=== PATIENT | male | born 1940 | race African-American/Black ===

== ENCOUNTER 2018-08-17 11:47 | Inpatient (IN) | payer MEDICARE, MEDICAID ==
[~2018-08-17] VITALS: Ht 175.3 cm; Wt 54.0 kg
[2018-08-17] MEDS: IPRATROPIUM BROMIDE (0.02%) 0.5MG/2.5ML NEB HHN SCH ×2 (01:20→20:50)
[2018-08-17] MEDS: ALBUTEROL (0.083%) 2.5MG/3ML NEB HHN SCH (05:10)
[2018-08-17] MEDS ORDERED: PREDNISONE 20MG TABLET PO STA (12:14)
[2018-08-17] MEDS ORDERED: IPRATROPIUM BROMIDE (0.02%) 0.5MG/2.5ML NEB HHN STA (12:14)
[2018-08-17] MEDS ORDERED: SODIUM CHLORIDE 0.9% 1000ML BAG (SEPSIS BOLUS) IV ONE (12:15)
[2018-08-17] MEDS ORDERED: DOXYCYCLINE HYCLATE 100MG CAPSULE PO ONE (12:15)
[2018-08-17 12:37] LABS: BG CARBOXYHEMOGLOBIN 1.3 % (0.5-1.5); BG DEOXYHEMOGLOBIN 1.5 % (0.0-5.0); BG FRACTION INSPIRED OXYGEN 36; BG HCO3 ACT 27.6 mmol/L (22.0-26.0); BG OXYGEN SATURATION 98.5 % (92.0-98.5); BG OXYHEMOGLOBIN 97.2 % (94.0-97.0); BG PCO2 42.7 mmHg (35.0-45.0); BG PH 7.428 (7.350-7.450); BG PO2 136.8 mmHg (75.0-100.0); BG SAMPLE SITE RIGHT RADIAL; BG TOTAL HEMOGLOBIN 5.9 g/dL (12.0-18.0); BG VENT MODE NASAL CANNULA
[2018-08-17 12:39] LABS: MEAN CORPUSCULAR HEMOGLOBIN 38.4 pg (28.0-32.0); MEAN CORPUSCULAR VOLUME 119.6 fL (80.0-94.0); MEAN PLATELET VOLUME 10.2 fl (7.4-10.4); PLATELET 66 x1000/uL (130-400); RED BLOOD CELL COUNT 1.33 mill/uL (4.7-6.1); RED CELL DISTRIBUTION WIDTH 18.9 % (11.6-14.6)
[2018-08-17 12:44] LABS: HEMOGLOBIN. 5.1 g/dL (14.0-18.0)
[2018-08-17 12:46] LABS: CHLORIDE 111 mEq/L (98-107)
[2018-08-17 12:50] LABS: ETHANOL BLOOD < 10 mg/dL
[2018-08-17 12:53] LABS: INR 1.1; PROTHROMBIN TIME 11.5 sec (9.6-11.0)
[2018-08-17 12:58] LABS: PLATELET ESTIMATE DECREASED
[2018-08-17] MEDS ORDERED: ONDANSETRON HCL 4MG/2ML INJ IV PRN (14:30)
[2018-08-17] MEDS ORDERED: METHYLPREDNISOLONE SOD SUCC 40 MG/ML VIAL IV NR (14:45)
[2018-08-17 14:58] LABS: TOTAL IRON BINDING CAPACITY 248 ug/dL (250-450)
[2018-08-17 16:50] LABS: FOLIC ACID (FOLATE) SERUM 13.7 ng/mL (>5.38)
[2018-08-17] MEDS ORDERED: ACETAMINOPHEN 325MG TABLET PO PRN (17:30)
[2018-08-17 17:56] LABS: HEPATITIS B SURFACE ANTIGEN NEGATIVE
[2018-08-17 18:26] LABS: HEPATITIS A AB IGM NEGATIVE (NEGATIVE)
[2018-08-17 20:00] VITALS: BP 108/88
[2018-08-17 20:01] VITALS: BP 108/88
[2018-08-17] MEDS ORDERED: SODIUM CHLORIDE 10% FOR INH 15ML VIAL NEB INH SCH (21:30)
[2018-08-17] MEDS ORDERED: CEFEPIME 500 MG in DEXTROSE 5% WATER 50 ML IV SCH (22:00)
[2018-08-17 23:50] VITALS: BP 130/56
[2018-08-18] VITALS (15 sets, daily range): BP systolic 106–158; BP diastolic 56–80
[2018-08-18] MEDS ORDERED: PIPERACILLIN/TAZ 2.25G PREMIX 50 ML IV SCH (01:00)
[2018-08-18 03:13] LABS: HEMATOCRIT 21.9 % (42.0-52.0)
[2018-08-18 03:20] LABS: HEMOGLOBIN 6.7 g/dL (14.0-18.0)
[2018-08-18] MEDS: SODIUM CHLORIDE 0.45% 1,000 ML IV SCH ×3 (04:09→17:10)
[2018-08-18] MEDS: METHYLPREDNISOLONE SOD SUCC 40 MG/ML VIAL IV SCH ×4 (04:09→21:37)
[2018-08-18] MEDS: IPRATROPIUM BROMIDE (0.02%) 0.5MG/2.5ML NEB HHN SCH ×5 (05:10→21:12)
[2018-08-18] MEDS ORDERED: PIPERACILLIN/TAZOBACTAM 2.25 G in DEXTROSE 5% WATER 50 ML IV SCH (06:00)
[2018-08-18 06:08] LABS: HEMATOCRIT. 21.5 % (42.0-52.0); MEAN CORPUSCULAR HEMOGLOBIN 32.5 pg (28.0-32.0); MEAN CORPUSCULAR VOLUME 104.4 fL (80.0-94.0); MEAN PLATELET VOLUME 9.4 fl (7.4-10.4); RED BLOOD CELL COUNT 2.06 mill/uL (4.7-6.1); RED CELL DISTRIBUTION WIDTH 25.1 % (11.6-14.6)
[2018-08-18 06:21] LABS: CHLORIDE 116 mEq/L (98-107)
[2018-08-18 06:26] LABS: CLARITY URINE CLEAR (CLEAR); COLOR URINE YELLOW (YELLOW); KETONES URINE NEGATIVE (NEGATIVE); LEUKOCYTE ESTERASE URINE 1+ (NEGATIVE); NITRITE URINE NEGATIVE (NEGATIVE); OCCULT BLOOD URINE NEGATIVE (NEGATIVE); PH URINE 5.5 (4.5-8.0); PROTEIN URINE NEGATIVE (NEGATIVE); SPECIFIC GRAVITY URINE 1.019 (1.005-1.030); UROBILINOGEN URINE 0.2 E.U./dL (0.2-1.0)
[2018-08-18 07:31] LABS: *AMPHETAMINES SCREEN URINE NEGATIVE (NEGATIVE); *BARBITURATES SCREEN URINE NEGATIVE (NEGATIVE); *BENZODIAZEPINES SCREEN URINE NEGATIVE (NEGATIVE); *COCAINE SCREEN URINE PRESUMTIVE POSITIVE (NEGATIVE); CANNABINOID URINE SCREEN NEGATIVE (NEGATIVE); METHADONE URINE SCREEN NEGATIVE (NEGATIVE); OPIATES URINE SCREEN NEGATIVE (NEGATIVE); PHENCYCLIDINE URINE SCREEN NEGATIVE (NEGATIVE)
[2018-08-18 08:49] LABS: HEMOGLOBIN. 6.7 g/dL (14.0-18.0); PLATELET 41 x1000/uL (130-400)
[2018-08-18 10:34] LABS: HEMATOCRIT 26.5 % (42.0-52.0); HEMOGLOBIN 8.4 g/dL (14.0-18.0)
[2018-08-18] MEDS: PANTOPRAZOLE SODIUM 40 MG/VIAL IV SCH (10:43)
[2018-08-18 11:23] LABS: PLATELET ESTIMATE MARKEDLY DECREASED
[2018-08-18] MEDS ORDERED: CEFEPIME 500 MG in DEXTROSE 5% WATER 50 ML IV SCH (12:30)
[2018-08-18] MEDS: METRONIDAZOLE 500 MG PREMIX 100 ML IV SCH ×2 (12:49→21:37)
[2018-08-18] MEDS ORDERED: METRONIDAZOLE 500 MG PREMIX 100 ML IV SCH (18:00)
[2018-08-19] VITALS: BP 132/63
[2018-08-19] MEDS: IPRATROPIUM BROMIDE (0.02%) 0.5MG/2.5ML NEB HHN SCH ×6 (00:46→21:15)
[2018-08-19 04:00] VITALS: BP 130/68
[2018-08-19] MEDS: METHYLPREDNISOLONE SOD SUCC 40 MG/ML VIAL IV SCH ×3 (06:18→22:04)
[2018-08-19] MEDS: METRONIDAZOLE 500 MG PREMIX 100 ML IV SCH ×3 (06:20→22:04)
[2018-08-19] MEDS: SODIUM CHLORIDE 0.45% 1,000 ML IV SCH ×2 (06:30→16:00)
[2018-08-19 06:55] LABS: CHLORIDE 114 mEq/L (98-107)
[2018-08-19 07:11] LABS: HAPTOGLOBIN 107 mg/dL (30-200)
[2018-08-19 08:00] VITALS: BP 133/55
[2018-08-19 08:34] LABS: HEMATOCRIT. 27.4 % (42.0-52.0); HEMOGLOBIN. 8.1 g/dL (14.0-18.0); MEAN CORPUSCULAR HEMOGLOBIN 30.5 pg (28.0-32.0); MEAN CORPUSCULAR VOLUME 103.7 fL (80.0-94.0); MEAN PLATELET VOLUME 9.3 fl (7.4-10.4); RED BLOOD CELL COUNT 2.64 mill/uL (4.7-6.1); RED CELL DISTRIBUTION WIDTH 25.7 % (11.6-14.6)
[2018-08-19] MEDS ORDERED: CEFEPIME 1,000 MG in DEXTROSE 5% WATER 50 ML IV SCH (08:37)
[2018-08-19 08:38] LABS: PLATELET 46 x1000/uL (130-400)
[2018-08-19 09:11] LABS: HIV SCREEN 4G Non Reactive (Non Reactive)
[2018-08-19] MEDS: PANTOPRAZOLE SODIUM 40 MG/VIAL IV SCH (09:54)
[2018-08-19] MEDS ORDERED: DIATR MEGLU/DIATRIZOATE SOLN 30ML PO SCH (11:00)
[2018-08-19] MEDS ORDERED: MIDAZOLAM HCL 2 MG/2 ML VIAL ONE (11:40)
[2018-08-19] MEDS ORDERED: PROPOFOL 200MG/20ML VIAL IV ONE (11:40)
[2018-08-19] MEDS ORDERED: FLUMAZENIL 0.1 MG/ML 5ML VIAL IV ONE (11:52)
[2018-08-19] MEDS: CEFEPIME 1,000 MG in DEXTROSE 5% WATER 50 ML IV SCH (13:59)
[2018-08-19] MEDS ORDERED: MORPHINE SULFATE 4 MG/ML CPJ (NOT FOR IM USE) IV PRN (14:00)
[2018-08-19] MEDS ORDERED: HYDROCODONE/ACETAMINOPHEN 5/325MG TABLET PO PRN (14:00)
[2018-08-19 16:00] VITALS: BP 147/68
[2018-08-19 16:56] LABS: PLATELET ESTIMATE MARKEDLY DECREASED
[2018-08-19 18:41] LABS: BG BASE EXCESS -3.2 mmol/L (-2.0-2.0); BG CARBOXYHEMOGLOBIN 1.2 % (0.5-1.5); BG DEOXYHEMOGLOBIN 16.8 % (0.0-5.0); BG FRACTION INSPIRED OXYGEN 21; BG HCO3 ACT 23.5 mmol/L (22.0-26.0); BG METHEMOGLOBIN 0.5 % (0.0-1.5); BG OXYGEN SATURATION 82.9 % (92.0-98.5); BG OXYHEMOGLOBIN 81.5 % (94.0-97.0); BG PCO2 50.5 mmHg (35.0-45.0); BG PH 7.285 (7.350-7.450); BG PO2 49.6 mmHg (75.0-100.0); BG SAMPLE SITE RIGHT RADIAL; BG TOTAL HEMOGLOBIN 8.8 g/dL (12.0-18.0); BG VENT MODE ROOM AIR
[2018-08-19 20:00] VITALS: BP 110/51
[2018-08-20] VITALS: BP 93/47
[2018-08-20] MEDS: IPRATROPIUM BROMIDE (0.02%) 0.5MG/2.5ML NEB HHN SCH ×6 (00:31→21:15)
[2018-08-20 04:00] VITALS: BP 111/47
[2018-08-20] MEDS: METRONIDAZOLE 500 MG PREMIX 100 ML IV SCH ×2 (05:19→14:11)
[2018-08-20] MEDS: METHYLPREDNISOLONE SOD SUCC 40 MG/ML VIAL IV SCH ×3 (05:19→21:51)
[2018-08-20 06:07] LABS: HEMOGLOBIN. 7.4 g/dL (14.0-18.0); MEAN CORPUSCULAR HEMOGLOBIN 32.2 pg (28.0-32.0); MEAN CORPUSCULAR VOLUME 104.3 fL (80.0-94.0); MEAN PLATELET VOLUME 12.3 fl (7.4-10.4)
[2018-08-20 06:41] LABS: CHLORIDE 114 mEq/L (98-107)
[2018-08-20 07:46] LABS: PLATELET 28 x1000/uL (130-400)
[2018-08-20 08:10] VITALS: BP 143/50
[2018-08-20] MEDS: PANTOPRAZOLE SODIUM 40 MG/VIAL IV SCH (09:04)
[2018-08-20] MEDS: SODIUM CHLORIDE 0.45% 1,000 ML IV SCH (09:04)
[2018-08-20 10:16] LABS: BG BASE EXCESS -2.8 mmol/L (-2.0-2.0); BG CARBOXYHEMOGLOBIN 0.3 % (0.5-1.5); BG DEOXYHEMOGLOBIN 8.4 % (0.0-5.0); BG METHEMOGLOBIN 0.1 % (0.0-1.5); BG OXYGEN SATURATION 91.6 % (92.0-98.5); BG OXYHEMOGLOBIN 91.2 % (94.0-97.0); BG PCO2 52.1 mmHg (35.0-45.0); BG PH 7.282 (7.350-7.450); BG PO2 65.3 mmHg (75.0-100.0); BG SAMPLE SITE RIGHT BRACHIAL; BG VENT MODE NASAL CANNULA
[2018-08-20 10:40] LABS: PLATELET ESTIMATE MARKEDLY DECREASED
[2018-08-20 12:00] VITALS: BP 138/52
[2018-08-20] MEDS: CEFEPIME 1,000 MG in DEXTROSE 5% WATER 50 ML IV SCH ×2 (12:27→14:00)
[2018-08-20 16:00] VITALS: BP 136/66
[2018-08-20 20:00] VITALS: BP 120/51
[2018-08-21] VITALS: BP 123/63
[2018-08-21] MEDS: IPRATROPIUM BROMIDE (0.02%) 0.5MG/2.5ML NEB HHN SCH ×7 (00:55→20:19)
[2018-08-21] MEDS: SODIUM CHLORIDE 0.45% 1,000 ML IV SCH ×2 (01:31→13:00)
[2018-08-21 04:00] VITALS: BP 146/59
[2018-08-21] MEDS: METHYLPREDNISOLONE SOD SUCC 40 MG/ML VIAL IV SCH ×3 (06:09→22:25)
[2018-08-21 07:03] LABS: HEMATOCRIT. 23.2 % (42.0-52.0); HEMOGLOBIN. 7.2 g/dL (14.0-18.0); MEAN CORPUSCULAR HEMOGLOBIN 32.2 pg (28.0-32.0); MEAN CORPUSCULAR VOLUME 103.7 fL (80.0-94.0); MEAN PLATELET VOLUME 9.5 fl (7.4-10.4); RED BLOOD CELL COUNT 2.24 mill/uL (4.7-6.1); RED CELL DISTRIBUTION WIDTH 24.3 % (11.6-14.6)
[2018-08-21 07:18] LABS: PLATELET 41 x1000/uL (130-400)
[2018-08-21 07:28] LABS: CHLORIDE 111 mEq/L (98-107)
[2018-08-21 08:00] VITALS: BP 141/65
[2018-08-21] MEDS: PANTOPRAZOLE SODIUM 40 MG/VIAL IV SCH (09:23)
[2018-08-21 10:13] LABS: PLATELET ESTIMATE MARKEDLY DECREASED
[2018-08-21 12:00] VITALS: BP 102/56
[2018-08-21] MEDS ORDERED: DIATR MEGLU/DIATRIZOATE SOLN 30ML PO SCH ×2 (12:15→12:30)
[2018-08-21 16:00] VITALS: BP 124/58
[2018-08-21 20:00] VITALS: BP 196/76
[2018-08-22] VITALS (7 sets, daily range): BP systolic 132–181; BP diastolic 57–90
[2018-08-22] MEDS: IPRATROPIUM BROMIDE (0.02%) 0.5MG/2.5ML NEB HHN SCH ×5 (00:15→14:50)
[2018-08-22] MEDS: SODIUM CHLORIDE 0.45% 1,000 ML IV SCH ×2 (01:27→14:18)
[2018-08-22 05:39] LABS: HEMATOCRIT. 26.3 % (42.0-52.0); HEMOGLOBIN. 7.6 g/dL (14.0-18.0); MEAN CORPUSCULAR HEMOGLOBIN 30.2 pg (28.0-32.0); MEAN CORPUSCULAR VOLUME 104.5 fL (80.0-94.0); MEAN PLATELET VOLUME 9.7 fl (7.4-10.4); RED BLOOD CELL COUNT 2.52 mill/uL (4.7-6.1)
[2018-08-22] MEDS: METHYLPREDNISOLONE SOD SUCC 40 MG/ML VIAL IV SCH ×2 (05:56→13:19)
[2018-08-22 07:06] LABS: CHLORIDE 109 mEq/L (98-107)
[2018-08-22 07:48] LABS: PLATELET 42 x1000/uL (130-400)
[2018-08-22 08:24] LABS: BG BASE EXCESS 3.3 mmol/L (-2.0-2.0); BG CARBOXYHEMOGLOBIN 0.3 % (0.5-1.5); BG DEOXYHEMOGLOBIN 14.4 % (0.0-5.0); BG HCO3 ACT 28.2 mmol/L (22.0-26.0); BG METHEMOGLOBIN 0.2 % (0.0-1.5); BG OXYGEN SATURATION 85.5 % (92.0-98.5); BG OXYHEMOGLOBIN 85.1 % (94.0-97.0); BG PCO2 44.5 mmHg (35.0-45.0); BG PH 7.419 (7.350-7.450); BG SAMPLE SITE RIGHT RADIAL; BG TOTAL HEMOGLOBIN 8.7 g/dL (12.0-18.0); BG VENT MODE ROOM AIR
[2018-08-22 08:42] LABS: PLATELET ESTIMATE MARKEDLY DECREASED
[2018-08-22] MEDS: PANTOPRAZOLE SODIUM 40 MG/VIAL IV SCH (08:52)
[2018-08-22] MEDS: CEFEPIME 1,000 MG in DEXTROSE 5% WATER 50 ML IV SCH (13:19)
== END 2018-08-22 16:54 | disposition home or self-care (01) | DRG 694 ==
LOC: ER 11:47 → EDBEDREQ 12:17 → 7WST 13:57 → EDBEDREQSVC 14:01 → EDBEDREQ 14:01 → ENRESERV 17:25
PROVIDERS: ADMIT Internal Medicine; ATTEND Internal Medicine
PROC: 30233N1 Transfusion of Nonautologous Red Blood Cells into Peripheral Vein, Percutaneous Approach (ICD-10-PCS; principal; 2018-08-17)
PROC: 07DQ3ZZ Extraction of Sternum Bone Marrow, Percutaneous Approach (ICD-10-PCS; 2018-08-19)
DX: C94.6 Myelodysplastic disease, not elsewhere classified (principal); N17.0 Acute kidney failure with tubular necrosis; I26.99 Other pulmonary embolism without acute cor pulmonale; J96.01 Acute respiratory failure with hypoxia; E43 Unspecified severe protein-calorie malnutrition; D69.6 Thrombocytopenia, unspecified; E87.8 Other disorders of electrolyte and fluid balance, not elsewhere classified; J68.0 Bronchitis and pneumonitis due to chemicals, gases, fumes and vapors; J44.1 Chronic obstructive pulmonary disease with (acute) exacerbation; D72.829 Elevated white blood cell count, unspecified; F14.10 Cocaine abuse, uncomplicated; F17.210 Nicotine dependence, cigarettes, uncomplicated; H26.9 Unspecified cataract; H54.8 Legal blindness, as defined in USA; I25.10 Atherosclerotic heart disease of native coronary artery without angina pectoris; N18.9 Chronic kidney disease, unspecified; Z68.1 Body mass index [BMI] 19.9 or less, adult; Z71.6 Tobacco abuse counseling
CPT/HCPCS: 36415; 36600; 38220; 71045; 78580; 80048; 80305; 80320; 82105; 82270; 82375; 82378; 82607; 82728; 82746; 82805; 83010; 83036; 83540; 83550; 83605; 83615; 83880; 84145; 84153; 84484; 85014; 85018; 85060; 85097; 85379; 86705; 86709; 86803; 86850; 86880; 86900; 86920; 87340; 87389; 88313; 93005; 93306; 93970; 94640; 94660; 96374; 96375; 99285; C9113; J0692; J2250; J2543; J2704; J2920; J3490; J7030; J7040; J7060; J7131; J7512; P9016; Q9963; G0103; G0480

== ENCOUNTER 2018-08-28 16:16 | Inpatient (IN) | payer MEDICARE, MEDICAID ==
[~2018-08-28] VITALS: Ht 182.9 cm; Wt 69.9 kg
[2018-08-28] MEDS ORDERED: IPRATROPIUM/ALBUTEROL 0.5-3(2.5)MG/3ML NEB HHN ONE (17:00)
[2018-08-28 17:33] LABS: CHLORIDE 105 mEq/L (98-107)
[2018-08-28 17:37] LABS: HEMATOCRIT. 25.6 % (42.0-52.0); HEMOGLOBIN. 8.1 g/dL (14.0-18.0); MEAN CORPUSCULAR HEMOGLOBIN 32.4 pg (28.0-32.0); MEAN CORPUSCULAR VOLUME 102.6 fL (80.0-94.0); MEAN PLATELET VOLUME 10.4 fl (7.4-10.4); PLATELET 72 x1000/uL (130-400); RED CELL DISTRIBUTION WIDTH 22.3 % (11.6-14.6)
[2018-08-28 18:01] LABS: BG BASE EXCESS 6.9 mmol/L (-2.0-2.0); BG BILEVEL POS AIRWAY PRESSURE 15/5; BG CARBOXYHEMOGLOBIN 0.7 % (0.5-1.5); BG DEOXYHEMOGLOBIN 6.2 % (0.0-5.0); BG METHEMOGLOBIN 0.3 % (0.0-1.5); BG OXYGEN SATURATION 93.7 % (92.0-98.5); BG OXYHEMOGLOBIN 92.8 % (94.0-97.0); BG PCO2 57.2 mmHg (35.0-45.0); BG PH 7.379 (7.350-7.450); BG PO2 74.9 mmHg (75.0-100.0); BG SAMPLE SITE RIGHT RADIAL; BG VENT MODE MASK - BIPAP; BG VENT RATE 16 set
[2018-08-28 18:09] LABS: NUCLEATED RED BLOOD CELLS 2 /100 WBC
[2018-08-28 18:10] LABS: PLATELET ESTIMATE MARKEDLY DECREASED
[2018-08-28 19:37] LABS: PROTHROMBIN TIME 10.4 sec (9.6-11.0)
[2018-08-28] MEDS ORDERED: LORAZEPAM 2MG/ML CPJ IV ONE (19:45)
[2018-08-28 23:00] VITALS: BP 140/64
[2018-08-28] MEDS ORDERED: ONDANSETRON HCL 4MG/2ML INJ IV PRN (23:00)
[2018-08-28] MEDS ORDERED: IPRATROPIUM/ALBUTEROL 0.5-3(2.5)MG/3ML NEB HHN PRN (23:00)
[2018-08-28] MEDS ORDERED: LORAZEPAM 2MG/ML CPJ IM PRN (23:00)
[2018-08-28] MEDS: FUROSEMIDE 40MG/4ML VIAL IVP SCH (23:23)
[2018-08-28] MEDS: METHYLPREDNISOLONE SOD SUCC 40 MG/ML VIAL IV SCH (23:23)
[2018-08-28] MEDS: DIPHENHYDRAMINE 50MG/ML VIAL IV PRN (23:48)
[2018-08-29] VITALS (35 sets, daily range): BP systolic 84–153; BP diastolic 49–92
[2018-08-29] MEDS ORDERED: LEVOFLOXACIN 500MG PREMIX 100 ML IV SCH
[2018-08-29] MEDS: IPRATROPIUM/ALBUTEROL 0.5-3(2.5)MG/3ML NEB HHN SCH ×6 (00:27→16:13)
[2018-08-29] MEDS: MORPHINE SULFATE 4 MG/ML CPJ (NOT FOR IM USE) IV PRN ×2 (01:41→13:53)
[2018-08-29] MEDS ORDERED: LORAZEPAM 2MG/ML CPJ IV PRN (01:45)
[2018-08-29] MEDS ORDERED: LORAZEPAM 2MG/ML CPJ IM PRN (01:45)
[2018-08-29] MEDS ORDERED: HALOPERIDOL LACTATE 5MG/ML VIAL IM PRN (01:45)
[2018-08-29] MEDS: METHYLPREDNISOLONE SOD SUCC 40 MG/ML VIAL IV SCH (05:20)
[2018-08-29] MEDS: FUROSEMIDE 40MG/4ML VIAL IVP SCH (05:20)
[2018-08-29] MEDS: DIPHENHYDRAMINE 50MG/ML VIAL IV PRN (05:35)
[2018-08-29 07:38] LABS: MEAN CORPUSCULAR HEMOGLOBIN 31.6 pg (28.0-32.0); MEAN PLATELET VOLUME 9.7 fl (7.4-10.4); PLATELET 60 x1000/uL (130-400); RED BLOOD CELL COUNT 2.21 mill/uL (4.7-6.1)
[2018-08-29 08:00] LABS: CHLORIDE 107 mEq/L (98-107)
[2018-08-29] MEDS ORDERED: LISINOPRIL 20MG TABLET PO SCH (09:00)
[2018-08-29] MEDS ORDERED: HYDRALAZINE 20MG/ML VIAL IV PRN (10:15)
[2018-08-29] MEDS ORDERED: DEXT 5%/0.45% NACL 1000ML 1,000 ML IV SCH (10:30)
[2018-08-29 11:51] LABS: PLATELET ESTIMATE DECREASED
[2018-08-29] MEDS: BUDESONIDE 0.5MG/2ML NEB HHN SCH (12:43)
[2018-08-29] MEDS: DEXTROSE 5% WATER 1,000 ML IV SCH (14:10)
[2018-08-29 14:18] LABS: BG BASE EXCESS 2.5 mmol/L (-2.0-2.0); BG CARBOXYHEMOGLOBIN 0.3 % (0.5-1.5); BG DEOXYHEMOGLOBIN 9.2 % (0.0-5.0); BG FRACTION INSPIRED OXYGEN 28; BG HCO3 ACT 28.7 mmol/L (22.0-26.0); BG METHEMOGLOBIN 0.3 % (0.0-1.5); BG OXYGEN SATURATION 90.7 % (92.0-98.5); BG OXYHEMOGLOBIN 90.2 % (94.0-97.0); BG PCO2 53.9 mmHg (35.0-45.0); BG PH 7.344 (7.350-7.450); BG PO2 64.7 mmHg (75.0-100.0); BG SAMPLE SITE RIGHT RADIAL; BG TOTAL HEMOGLOBIN 7.7 g/dL (12.0-18.0); BG VENT MODE NASAL CANNULA
[2018-08-30] VITALS (12 sets, daily range): BP systolic 93–128; BP diastolic 48–67
[2018-08-30 06:10] LABS: HEMATOCRIT. 24.5 % (42.0-52.0); HEMOGLOBIN. 7.5 g/dL (14.0-18.0); MEAN CORPUSCULAR HEMOGLOBIN 31.1 pg (28.0-32.0); MEAN CORPUSCULAR VOLUME 102.1 fL (80.0-94.0); MEAN PLATELET VOLUME 9.2 fl (7.4-10.4); RED CELL DISTRIBUTION WIDTH 21.6 % (11.6-14.6)
[2018-08-30 06:54] LABS: PLATELET 50 x1000/uL (130-400)
[2018-08-30] MEDS: BUDESONIDE 0.5MG/2ML NEB HHN SCH ×3 (08:37→22:30)
[2018-08-30] MEDS: IPRATROPIUM/ALBUTEROL 0.5-3(2.5)MG/3ML NEB HHN SCH ×4 (08:37→20:33)
[2018-08-30] MEDS: PREDNISONE 20MG TABLET PO SCH (08:40)
[2018-08-30 09:08] LABS: CHLORIDE 107 mEq/L (98-107)
[2018-08-30] MEDS: DEXTROSE 5% WATER 1,000 ML IV SCH (12:30)
[2018-08-30] MEDS ORDERED: SODIUM CHLORIDE 0.9% 500 ML IV ONE (12:45)
[2018-08-30 14:18] LABS: PLATELET ESTIMATE MARKEDLY DECREASED
[2018-08-30 18:03] LABS: BG BASE EXCESS 4.1 mmol/L (-2.0-2.0); BG BILEVEL POS AIRWAY PRESSURE 15/5; BG CARBOXYHEMOGLOBIN 0.3 % (0.5-1.5); BG DEOXYHEMOGLOBIN 2.5 % (0.0-5.0); BG FRACTION INSPIRED OXYGEN 35; BG HCO3 ACT 30.3 mmol/L (22.0-26.0); BG METHEMOGLOBIN 0.5 % (0.0-1.5); BG OXYGEN SATURATION 97.5 % (92.0-98.5); BG OXYHEMOGLOBIN 96.7 % (94.0-97.0); BG PCO2 54.9 mmHg (35.0-45.0); BG PO2 110.6 mmHg (75.0-100.0); BG SAMPLE SITE RIGHT BRACHIAL; BG TOTAL HEMOGLOBIN 8.8 g/dL (12.0-18.0); BG VENT MODE MASK - BIPAP
[2018-08-30 20:17] LABS: CLARITY URINE CLEAR (CLEAR); COLOR URINE YELLOW (YELLOW); KETONES URINE NEGATIVE (NEGATIVE); LEUKOCYTE ESTERASE URINE TRACE (NEGATIVE); NITRITE URINE NEGATIVE (NEGATIVE); OCCULT BLOOD URINE 3+ (NEGATIVE); PROTEIN URINE 2+ (NEGATIVE); SPECIFIC GRAVITY URINE 1.014 (1.005-1.030); UROBILINOGEN URINE 0.2 E.U./dL (0.2-1.0)
[2018-08-31] VITALS (15 sets, daily range): BP systolic 10–136; BP diastolic 51–87
[2018-08-31] MEDS: IPRATROPIUM/ALBUTEROL 0.5-3(2.5)MG/3ML NEB HHN SCH ×5 (00:22→16:00)
[2018-08-31 06:42] LABS: HEMATOCRIT. 22.2 % (42.0-52.0); MEAN CORPUSCULAR HEMOGLOBIN 31.5 pg (28.0-32.0); MEAN PLATELET VOLUME 9.5 fl (7.4-10.4); PLATELET 57 x1000/uL (130-400); RED BLOOD CELL COUNT 2.19 mill/uL (4.7-6.1); RED CELL DISTRIBUTION WIDTH 21.5 % (11.6-14.6)
[2018-08-31 06:45] LABS: CHLORIDE 107 mEq/L (98-107)
[2018-08-31 07:45] LABS: HEMOGLOBIN. 6.9 g/dL (14.0-18.0)
[2018-08-31] MEDS: PREDNISONE 20MG TABLET PO SCH (08:20)
[2018-08-31] MEDS: DEXTROSE 5% WATER 1,000 ML IV SCH (12:30)
[2018-08-31 16:49] LABS: PLATELET ESTIMATE DECREASED
== END 2018-08-31 20:53 | disposition home health service (06) | DRG 134 ==
LOC: ER 16:50 → 3WST 19:24 → EDBEDREQTM 19:27 → EDBEDREQSVC 19:27 → EDBEDREQ 19:27 → ENRESERV 20:52
PROVIDERS: ADMIT Internal Medicine; ATTEND Internal Medicine
PROC: 5A09357 Assistance with Respiratory Ventilation, Less than 24 Consecutive Hours, Continuous Positive Airway Pressure (ICD-10-PCS; principal; 2018-08-28)
PROC: 30233N1 Transfusion of Nonautologous Red Blood Cells into Peripheral Vein, Percutaneous Approach (ICD-10-PCS; 2018-08-29)
PROC: 5A09357 Assistance with Respiratory Ventilation, Less than 24 Consecutive Hours, Continuous Positive Airway Pressure (ICD-10-PCS; 2018-08-30)
DX: I26.99 Other pulmonary embolism without acute cor pulmonale (principal); N17.0 Acute kidney failure with tubular necrosis; J96.01 Acute respiratory failure with hypoxia; E43 Unspecified severe protein-calorie malnutrition; E87.4 Mixed disorder of acid-base balance; D61.818 Other pancytopenia; G92 Toxic encephalopathy; E87.0 Hyperosmolality and hypernatremia; C94.6 Myelodysplastic disease, not elsewhere classified; T83.091A Other mechanical complication of indwelling urethral catheter, initial encounter; E87.5 Hyperkalemia; F14.10 Cocaine abuse, uncomplicated; F17.210 Nicotine dependence, cigarettes, uncomplicated; H26.9 Unspecified cataract; H54.8 Legal blindness, as defined in USA; I11.0 Hypertensive heart disease with heart failure; I50.9 Heart failure, unspecified; R74.0 Nonspecific elevation of levels of transaminase and lactic acid dehydrogenase [LDH]; J44.1 Chronic obstructive pulmonary disease with (acute) exacerbation; Y73.8 Miscellaneous gastroenterology and urology devices associated with adverse incidents, not elsewhere classified; Z68.20 Body mass index [BMI] 20.0-20.9, adult
CPT/HCPCS: 36415; 36600; 71045; 80048; 82375; 82805; 83605; 83880; 84484; 86850; 86900; 86920; 93005; 96374; 99285; J1200; J1630; J1940; J1956; J2060; J2270; J2920; J7040; J7050; J7070; J7512; J7620; J7626; P9016; A4315

== ENCOUNTER 2018-09-15 11:16 | Emergency (ER) | payer MEDICARE, MEDICAID ==
[~2018-09-15] VITALS: Ht 177.8 cm; Wt 64.0 kg
[2018-09-15 12:25] VITALS: BP 183/74
== END 2018-09-15 13:21 | disposition home or self-care (01) ==
LOC: ER 11:16
DX: T83.098D Other mechanical complication of other urinary catheter, subsequent encounter (principal); I11.0 Hypertensive heart disease with heart failure; I50.9 Heart failure, unspecified; D64.9 Anemia, unspecified; J44.9 Chronic obstructive pulmonary disease, unspecified; Z99.81 Dependence on supplemental oxygen
CPT/HCPCS: 99283

== ENCOUNTER 2018-09-16 18:08 | Inpatient (IN) | payer MEDICARE, MEDICAID ==
[~2018-09-16] VITALS: Ht 172.7 cm; Wt 69.1 kg
[2018-09-16] MEDS ORDERED: SODIUM CHLORIDE 0.9% 1,000 ML IV ONE (18:31)
[2018-09-16 18:59] LABS: HEMATOCRIT. 25.2 % (42.0-52.0); MEAN CORPUSCULAR HEMOGLOBIN 31.9 pg (28.0-32.0); MEAN CORPUSCULAR VOLUME 100.4 fL (80.0-94.0); MEAN PLATELET VOLUME 8.7 fl (7.4-10.4); PLATELET 119 x1000/uL (130-400); RED BLOOD CELL COUNT 2.51 mill/uL (4.7-6.1); RED CELL DISTRIBUTION WIDTH 22.2 % (11.6-14.6)
[2018-09-16 19:03] LABS: CHLORIDE 105 mEq/L (98-107)
[2018-09-16] MEDS ORDERED: VANCOMYCIN 1 G PREMIX 200 ML IV ONE (19:15)
[2018-09-16] MEDS ORDERED: PIPERACILLIN/TAZ 3.375G PREMIX 50 ML IV ONE (19:15)
[2018-09-16] MEDS ORDERED: SODIUM CHLORIDE 0.9% 1000ML BAG (SEPSIS BOLUS) IV ONE (19:15)
[2018-09-16 19:38] LABS: PROTHROMBIN TIME 10.7 sec (9.6-11.0)
[2018-09-16 19:40] LABS: CHLORIDE 106 mEq/L (98-107)
[2018-09-16 20:32] LABS: PLATELET ESTIMATE DECREASED
[2018-09-17] VITALS (60 sets, daily range): BP systolic 77–125; BP diastolic 37–96
[2018-09-17] MEDS ORDERED: ETOMIDATE 2MG/ML 10ML VIAL IV ONE (00:16)
[2018-09-17] MEDS ORDERED: VECURONIUM BROMIDE 10 MG/VIAL IV ONE (00:16)
[2018-09-17] MEDS ORDERED: SODIUM CHLORIDE 0.9% 10ML VIAL ONE (00:16)
[2018-09-17] MEDS ORDERED: SUCCINYLCHOLINE CHLORIDE 200MG/10ML IV ONE (00:16)
[2018-09-17] MEDS ORDERED: PROPOFOL 10MG/ML 100ML 100 ML IV ONE (01:35)
[2018-09-17] MEDS ORDERED: PROPOFOL 10MG/ML 100ML 100 ML IV SCH (02:00)
[2018-09-17] MEDS ORDERED: FENTANYL CITRATE/PF 500 MCG in SODIUM CHLORIDE 0.9% 40 ML IV PRN ×2 (02:15→02:45)
[2018-09-17] MEDS ORDERED: MIDAZOLAM HCL 50 MG in DEXTROSE 5% WATER 40 ML IV ONE (02:15)
[2018-09-17] MEDS ORDERED: MIDAZOLAM HCL 50 MG in DEXTROSE 5% WATER 40 ML IV PRN (02:15)
[2018-09-17 02:18] LABS: BG BASE EXCESS 0.3 mmol/L (-2.0-2.0); BG CARBOXYHEMOGLOBIN 0.5 % (0.5-1.5); BG DEOXYHEMOGLOBIN 0.6 % (0.0-5.0); BG FRACTION INSPIRED OXYGEN 100; BG HCO3 ACT 27.5 mmol/L (22.0-26.0); BG METHEMOGLOBIN 0.2 % (0.0-1.5); BG OXYGEN SATURATION 99.4 % (92.0-98.5); BG OXYHEMOGLOBIN 98.7 % (94.0-97.0); BG PCO2 62.5 mmHg (35.0-45.0); BG PH 7.262 (7.350-7.450); BG PO2 273.3 mmHg (75.0-100.0); BG SAMPLE SITE RIGHT RADIAL; BG TIDAL VOLUME(mL) 550 mL; BG TOTAL HEMOGLOBIN 7.1 g/dL (12.0-18.0); BG VENT MODE VENT - A/C; BG VENT RATE 14 set
[2018-09-17] MEDS ORDERED: LEVOFLOXACIN 500MG PREMIX 100 ML IV SCH (04:00)
[2018-09-17] MEDS ORDERED: ACETAMINOPHEN 650MG SUPP PR PRN (04:00)
[2018-09-17] MEDS ORDERED: ONDANSETRON HCL 4MG/2ML INJ IV PRN (04:00)
[2018-09-17] MEDS: LEVOFLOXACIN 500MG PREMIX 100 ML IV SCH (05:50)
[2018-09-17] MEDS: FAMOTIDINE 20MG/2ML VIAL IV SCH (05:50)
[2018-09-17] MEDS: DEXT 5%/0.45% NACL 1000ML 1,000 ML IV SCH (05:51)
[2018-09-17] MEDS: NOREPINEPHRINE 8 MG in DEXT 5% WATER 242 ML IV PRN ×2 (06:28→20:40)
[2018-09-17] MEDS: MIDAZOLAM HCL 50 MG in DEXTROSE 5% WATER 40 ML IV PRN ×3 (06:29→22:20)
[2018-09-17] MEDS ORDERED: VANCOMYCIN 1500MG in DEXTROSE 5% WATER 250ML IV SCH (08:00)
[2018-09-17 09:37] LABS: BG BASE EXCESS -0.3 mmol/L (-2.0-2.0); BG CARBOXYHEMOGLOBIN 1.5 % (0.5-1.5); BG DEOXYHEMOGLOBIN 0.4 % (0.0-5.0); BG FRACTION INSPIRED OXYGEN 70; BG HCO3 ACT 25.2 mmol/L (22.0-26.0); BG METHEMOGLOBIN 0.3 % (0.0-1.5); BG OXYGEN SATURATION 99.6 % (92.0-98.5); BG OXYHEMOGLOBIN 97.8 % (94.0-97.0); BG PCO2 46.1 mmHg (35.0-45.0); BG PH 7.356 (7.350-7.450); BG PO2 172.5 mmHg (75.0-100.0); BG SAMPLE SITE RIGHT RADIAL; BG TIDAL VOLUME(mL) 550 mL; BG TOTAL HEMOGLOBIN 6.7 g/dL (12.0-18.0); BG VENT MODE VENT - A/C; BG VENT RATE 18 set
[2018-09-17] MEDS ORDERED: LIDOCAINE HCL 1% 20ML VIAL (Pyxis) INJ ONE (10:42)
[2018-09-17] MEDS ORDERED: IPRATROPIUM/ALBUTEROL 0.5-3(2.5)MG/3ML NEB HHN PRN (13:15)
[2018-09-17] MEDS: FENTANYL CITRATE/PF 500 MCG in SODIUM CHLORIDE 0.9% 40 ML IV PRN (14:08)
[2018-09-17] MEDS ORDERED: SODIUM CHLORIDE 10% FOR INH 15ML VIAL NEB INH SCH (14:30)
[2018-09-17] MEDS: BUDESONIDE 0.5MG/2ML NEB HHN SCH (15:14)
[2018-09-17 16:00] LABS: CLARITY URINE TURBID (CLEAR); KETONES URINE TRACE (NEGATIVE); LEUKOCYTE ESTERASE URINE 2+ (NEGATIVE); NITRITE URINE NEGATIVE (NEGATIVE); OCCULT BLOOD URINE 3+ (NEGATIVE); PH URINE 5.5 (4.5-8.0); PROTEIN URINE 2+ (NEGATIVE); SPECIFIC GRAVITY URINE 1.023 (1.005-1.030)
[2018-09-17 16:02] LABS: COLOR URINE BROWN (YELLOW)
[2018-09-17 16:23] LABS: *BARBITURATES SCREEN URINE NEGATIVE (NEGATIVE)
[2018-09-17 16:24] LABS: *AMPHETAMINES SCREEN URINE NEGATIVE (NEGATIVE); *BENZODIAZEPINES SCREEN URINE PRESUMTIVE POSITIVE (NEGATIVE); *COCAINE SCREEN URINE NEGATIVE (NEGATIVE); METHADONE URINE SCREEN NEGATIVE (NEGATIVE); OPIATES URINE SCREEN PRESUMTIVE POSITIVE (NEGATIVE)
[2018-09-17 16:25] LABS: CANNABINOID URINE SCREEN NEGATIVE (NEGATIVE); PHENCYCLIDINE URINE SCREEN NEGATIVE (NEGATIVE)
[2018-09-17] MEDS: IPRATROPIUM/ALBUTEROL 0.5-3(2.5)MG/3ML NEB HHN SCH (20:38)
[2018-09-17] MEDS: VANCOMYCIN 750 MG PREMIX 150 ML IV SCH (22:18)
[2018-09-17] MEDS: TAMSULOSIN HCL 0.4MG SR CAPSULE PO SCH (22:19)
[2018-09-18] VITALS (97 sets, daily range): BP systolic 83–146; BP diastolic 40–121
[2018-09-18] MEDS: FENTANYL CITRATE/PF 500 MCG in SODIUM CHLORIDE 0.9% 40 ML IV PRN ×3 (00:39→21:01)
[2018-09-18] MEDS: IPRATROPIUM/ALBUTEROL 0.5-3(2.5)MG/3ML NEB HHN SCH ×4 (02:18→22:03)
[2018-09-18] MEDS: DEXT 5%/0.45% NACL 1000ML 1,000 ML IV SCH ×2 (03:24→17:54)
[2018-09-18] MEDS: ACETAMINOPHEN 650MG/20.3ML UDC GT PRN ×2 (05:50→18:01)
[2018-09-18] MEDS: LEVOFLOXACIN 500MG PREMIX 100 ML IV SCH (05:51)
[2018-09-18 06:04] LABS: MEAN CORPUSCULAR HEMOGLOBIN 32.3 pg (28.0-32.0); MEAN CORPUSCULAR VOLUME 103.9 fL (80.0-94.0); MEAN PLATELET VOLUME 9.1 fl (7.4-10.4); PLATELET 92 x1000/uL (130-400); RED BLOOD CELL COUNT 1.95 mill/uL (4.7-6.1); RED CELL DISTRIBUTION WIDTH 22.2 % (11.6-14.6)
[2018-09-18 06:15] LABS: CHLORIDE 107 mEq/L (98-107)
[2018-09-18 06:39] LABS: HEMATOCRIT. 20.3 % (42.0-52.0); HEMOGLOBIN. 6.3 g/dL (14.0-18.0)
[2018-09-18] MEDS: FAMOTIDINE 20MG/2ML VIAL IV SCH (08:11)
[2018-09-18] MEDS: BUDESONIDE 0.5MG/2ML NEB HHN SCH ×2 (08:38→22:03)
[2018-09-18] MEDS: MIDAZOLAM HCL 50 MG in DEXTROSE 5% WATER 40 ML IV PRN ×2 (08:57→21:02)
[2018-09-18 09:23] LABS: PLATELET ESTIMATE DECREASED
[2018-09-18] MEDS: VANCOMYCIN 750 MG PREMIX 150 ML IV SCH (11:41)
[2018-09-18 11:44] LABS: BG BASE EXCESS 0.8 mmol/L (-2.0-2.0); BG CARBOXYHEMOGLOBIN 0.1 % (0.5-1.5); BG DEOXYHEMOGLOBIN 7.6 % (0.0-5.0); BG FRACTION INSPIRED OXYGEN 50; BG HCO3 ACT 28.4 mmol/L (22.0-26.0); BG METHEMOGLOBIN 0.3 % (0.0-1.5); BG OXYGEN SATURATION 92.4 % (92.0-98.5); BG PCO2 66.2 mmHg (35.0-45.0); BG PO2 74.2 mmHg (75.0-100.0); BG SAMPLE SITE RIGHT BRACHIAL; BG TIDAL VOLUME(mL) 450 mL; BG TOTAL HEMOGLOBIN 7.3 g/dL (12.0-18.0); BG VENT MODE VENT - A/C; BG VENT RATE 16 set
[2018-09-18] MEDS: VANCOMYCIN 1250MG in DEXTROSE 5% WATER 250ML IV SCH (17:53)
[2018-09-18] MEDS: TAMSULOSIN HCL 0.4MG SR CAPSULE PO SCH (20:29)
[2018-09-19] VITALS (94 sets, daily range): BP systolic 80–144; BP diastolic 44–73
[2018-09-19 00:07] LABS: HEMATOCRIT 26.7 % (42.0-52.0); HEMOGLOBIN 8.6 g/dL (14.0-18.0)
[2018-09-19] MEDS: VANCOMYCIN 1250MG in DEXTROSE 5% WATER 250ML IV SCH ×3 (01:36→17:29)
[2018-09-19] MEDS: IPRATROPIUM/ALBUTEROL 0.5-3(2.5)MG/3ML NEB HHN SCH ×5 (04:38→21:17)
[2018-09-19] MEDS: LANSOPRAZOLE 30MG DR CAPSULE GT SCH (06:16)
[2018-09-19] MEDS: LEVOFLOXACIN 500MG PREMIX 100 ML IV SCH (06:17)
[2018-09-19] MEDS: MIDAZOLAM HCL 50 MG in DEXTROSE 5% WATER 40 ML IV PRN ×2 (06:18→16:18)
[2018-09-19] MEDS: FENTANYL CITRATE/PF 500 MCG in SODIUM CHLORIDE 0.9% 40 ML IV PRN ×2 (06:18→16:18)
[2018-09-19 08:04] LABS: BG BASE EXCESS 3.3 mmol/L (-2.0-2.0); BG CARBOXYHEMOGLOBIN 0.2 % (0.5-1.5); BG DEOXYHEMOGLOBIN 8.9 % (0.0-5.0); BG FRACTION INSPIRED OXYGEN 50; BG HCO3 ACT 31.6 mmol/L (22.0-26.0); BG METHEMOGLOBIN 0.2 % (0.0-1.5); BG OXYGEN SATURATION 91.1 % (92.0-98.5); BG OXYHEMOGLOBIN 90.7 % (94.0-97.0); BG PCO2 73.8 mmHg (35.0-45.0); BG PH 7.249 (7.350-7.450); BG PO2 65.2 mmHg (75.0-100.0); BG SAMPLE SITE LEFT RADIAL; BG TIDAL VOLUME(mL) 450 mL; BG TOTAL HEMOGLOBIN 8.4 g/dL (12.0-18.0); BG VENT MODE VENT - A/C; BG VENT RATE 16 set
[2018-09-19] MEDS: BUDESONIDE 0.5MG/2ML NEB HHN SCH (08:56)
[2018-09-19 11:19] LABS: HEMATOCRIT. 24.4 % (42.0-52.0); HEMOGLOBIN. 7.6 g/dL (14.0-18.0); MEAN CORPUSCULAR HEMOGLOBIN 30.7 pg (28.0-32.0); MEAN CORPUSCULAR VOLUME 98.4 fL (80.0-94.0); MEAN PLATELET VOLUME 8.7 fl (7.4-10.4); PLATELET 83 x1000/uL (130-400); RED BLOOD CELL COUNT 2.48 mill/uL (4.7-6.1); RED CELL DISTRIBUTION WIDTH 21.1 % (11.6-14.6)
[2018-09-19 11:24] LABS: CHLORIDE 103 mEq/L (98-107)
[2018-09-19] MEDS: DEXT 5%/0.45% NACL 1000ML 1,000 ML IV SCH (16:22)
[2018-09-19] MEDS: TAMSULOSIN HCL 0.4MG SR CAPSULE PO SCH (21:03)
[2018-09-19 22:09] LABS: PLATELET ESTIMATE NORMAL
[2018-09-20] VITALS (76 sets, daily range): BP systolic 45–142; BP diastolic 28–65
[2018-09-20] MEDS: IPRATROPIUM/ALBUTEROL 0.5-3(2.5)MG/3ML NEB HHN SCH ×2 (00:59→08:20)
[2018-09-20] MEDS: VANCOMYCIN 1250MG in DEXTROSE 5% WATER 250ML IV SCH ×2 (01:38→09:35)
[2018-09-20] MEDS: MIDAZOLAM HCL 50 MG in DEXTROSE 5% WATER 40 ML IV PRN (03:08)
[2018-09-20] MEDS: FENTANYL CITRATE/PF 500 MCG in SODIUM CHLORIDE 0.9% 40 ML IV PRN (03:09)
[2018-09-20] MEDS: LEVOFLOXACIN 500MG PREMIX 100 ML IV SCH (05:01)
[2018-09-20] MEDS ORDERED: FENTANYL CITRATE/PF 500 MCG in SODIUM CHLORIDE 0.9% 40 ML IV PRN (05:15)
[2018-09-20] MEDS: LANSOPRAZOLE 30MG DR CAPSULE GT SCH (05:31)
[2018-09-20] MEDS: BUDESONIDE 0.5MG/2ML NEB HHN SCH (08:20)
[2018-09-20 08:38] LABS: CHLORIDE 102 mEq/L (98-107)
[2018-09-20 08:43] LABS: HEMATOCRIT. 21.7 % (42.0-52.0); MEAN CORPUSCULAR HEMOGLOBIN 31.7 pg (28.0-32.0); MEAN CORPUSCULAR VOLUME 98.6 fL (80.0-94.0); MEAN PLATELET VOLUME 8.9 fl (7.4-10.4); PLATELET 78 x1000/uL (130-400); RED CELL DISTRIBUTION WIDTH 20.3 % (11.6-14.6)
[2018-09-20 08:49] LABS: VANCOMYCIN TROUGH 28.2 ug/mL (5.0-10.0)
[2018-09-20] MEDS ORDERED: LORAZEPAM 2MG/ML CPJ IV PRN (10:15)
[2018-09-20] MEDS ORDERED: HALOPERIDOL LACTATE 5MG/ML VIAL IM PRN (10:15)
[2018-09-20] MEDS: MORPHINE SULFATE 250 MG in DEXT 5% WATER 240 ML IV PRN ×2 (11:19→17:22)
[2018-09-20 19:34] LABS: PLATELET ESTIMATE DECREASED
[2018-09-20] MEDS ORDERED: VANCOMYCIN 1500MG in DEXTROSE 5% WATER 250ML IV SCH (21:00)
== END 2018-09-20 20:08 | disposition expired | DRG 720 ==
LOC: ER 18:08 → MICUSO 09-17 01:06 → EDBEDREQTM 09-17 01:12 → EDBEDREQ 09-17 01:12 → EDBEDREQDT 09-17 01:12 → EDBEDREQSVC 09-17 01:12 → ENRESERV 09-17 02:49
PROVIDERS: ADMIT Hospitalist; ATTEND Hospitalist
PROC: 5A1945Z Respiratory Ventilation, 24-96 Consecutive Hours (ICD-10-PCS; principal; 2018-09-17)
PROC: 0BH18EZ Insertion of Endotracheal Airway into Trachea, Via Natural or Artificial Opening Endoscopic (ICD-10-PCS; 2018-09-17)
PROC: 02HV33Z Insertion of Infusion Device into Superior Vena Cava, Percutaneous Approach (ICD-10-PCS; 2018-09-17)
PROC: B548ZZA Ultrasonography of Superior Vena Cava, Guidance (ICD-10-PCS; 2018-09-17)
DX: A41.9 Sepsis, unspecified organism (principal); J96.01 Acute respiratory failure with hypoxia; E43 Unspecified severe protein-calorie malnutrition; J18.9 Pneumonia, unspecified organism; D61.818 Other pancytopenia; I13.0 Hypertensive heart and chronic kidney disease with heart failure and stage 1 through stage 4 chronic kidney disease, or unspecified chronic kidney disease; J44.1 Chronic obstructive pulmonary disease with (acute) exacerbation; J44.0 Chronic obstructive pulmonary disease with (acute) lower respiratory infection; J44.9 Chronic obstructive pulmonary disease, unspecified; I50.9 Heart failure, unspecified; I67.82 Cerebral ischemia; D46.9 Myelodysplastic syndrome, unspecified; N39.0 Urinary tract infection, site not specified; F14.10 Cocaine abuse, uncomplicated; F17.210 Nicotine dependence, cigarettes, uncomplicated; H26.9 Unspecified cataract; H54.8 Legal blindness, as defined in USA; I49.3 Ventricular premature depolarization; N13.9 Obstructive and reflux uropathy, unspecified; N18.9 Chronic kidney disease, unspecified; S80.821A Blister (nonthermal), right lower leg, initial encounter; X58.XXXA Exposure to other specified factors, initial encounter; Z51.5 Encounter for palliative care; Z66 Do not resuscitate; Z78.1 Physical restraint status; Z86.711 Personal history of pulmonary embolism; Y93.89 Activity, other specified; Y92.89 Other specified places as the place of occurrence of the external cause; Y99.8 Other external cause status; Z99.81 Dependence on supplemental oxygen; Z68.23 Body mass index [BMI] 23.0-23.9, adult
CPT/HCPCS: 36415; 36569; 36600; 71045; 76937; 80048; 80202; 80305; 82375; 82805; 83605; 83880; 84145; 84484; 85014; 85018; 86850; 86900; 86920; 87070; 93005; 93970; 94002; 94003; 94640; 96374; 96375; 99285; C1725; J0330; J1630; J1956; J2060; J2250; J2274; J2543; J2704; J3010; J3370; J3490; J7030; J7050; J7060; J7131; J7620; J7626; P9021; A4315